=== PATIENT | female | born 1980 | race Caucasian/White ===

== ENCOUNTER 2016-11-28 19:18 | Emergency (ER) | payer OTHER ==
[~2016-11-28] VITALS: Ht 170.2 cm; Wt 100.0 kg
[~2016-11-28 19:18] MED LIST: CLON-364 PO; DOCU240C31 PO; ESCI10TA10 PO; FLUC200T PO; HYDR-3307 PO; HYDR4TAB48 PO; IBUP-1222 PO; SENN1TAB67 PO
[2016-11-28] MEDS ORDERED: HYDR-882 PO (19:32)
[2016-11-28] MEDS ORDERED: HYDROcodone/APAP 5/325 TABLET ONE (19:53)
[2016-11-28] MEDS ORDERED: KETOROLAC 30 MG/1 ML ONE (19:54)
[2016-11-28] MEDS ORDERED: METHOCARBAMOL 750 MG TABLET ONE (19:54)
[2016-11-28] MEDS ORDERED: HYDROcodone/APAP 5/325 TABLET PO ONE (20:00)
[2016-11-28] MEDS ORDERED: KETOROLAC 30 MG/1 ML IM ONE (20:00)
[2016-11-28] MEDS ORDERED: METHOCARBAMOL 750 MG TABLET PO ONE (20:00)
[2016-11-28 20:47] VITALS: BP 109/65
== END 2016-11-28 21:25 | disposition home or self-care (01) ==
LOC: ED 21:19
DX: S39.012A Strain of muscle, fascia and tendon of lower back, initial encounter (principal); G89.11 Acute pain due to trauma; M46.1 Sacroiliitis, not elsewhere classified; G89.29 Other chronic pain; W01.0XXA Fall on same level from slipping, tripping and stumbling without subsequent striking against object, initial encounter; Y93.89 Activity, other specified; Y92.89 Other specified places as the place of occurrence of the external cause; Y99.8 Other external cause status
CPT/HCPCS: 72072; 72110; 72220; 96372; 99284; J1885

== ENCOUNTER 2017-01-04 02:55 | Emergency (ER) | payer OTHER ==
[~2017-01-04] VITALS: Ht 170.2 cm; Wt 112.0 kg
[~2017-01-04 02:55] MED LIST changes: +HYDR-882 PO
[2017-01-04] MEDS ORDERED: SODIUM CHLORIDE FLUSH 10ML SYR IVF ONE (03:30)
[2017-01-04] MEDS ORDERED: SODIUM CHLORIDE 0.9% 1,000ML IVBOLUS ONE (03:30)
[2017-01-04] MEDS ORDERED: ONDANSETRON 2MG/ML, 2ML IVPush ONE (03:30)
[2017-01-04] MEDS ORDERED: ONDANSETRON 2MG/ML, 2ML ONE (03:36)
[2017-01-04] MEDS ORDERED: MORPHINE SULFATE 4 MG/ML, 1ML ONE (04:02)
[2017-01-04 04:05] LABS: HEMATOCRIT 44.3 % (34.6-47.8); HEMOGLOBIN 15.3 g/dL (11.7-16.4); WHITE BLOOD COUNT 14.9 x10^3/uL (3.4-10)
[2017-01-04 04:17] LABS: ASPARTATE AMINO TRANSFERASE 10 U/L (15-37); BLOOD UREA NITROGEN 9 mg/dL (7-18)
[2017-01-04] MEDS ORDERED: MORPHINE SULFATE 4 MG/ML, 1ML IVPush PRN (04:30)
[2017-01-04 05:32] VITALS: BP 107/47
== END 2017-01-04 06:33 | disposition home or self-care (01) ==
LOC: ED 05:38
DX: S16.1XXA Strain of muscle, fascia and tendon at neck level, initial encounter (principal); S06.0X0A Concussion without loss of consciousness, initial encounter; S09.90XA Unspecified injury of head, initial encounter; R55 Syncope and collapse; R11.2 Nausea with vomiting, unspecified; E78.5 Hyperlipidemia, unspecified; W19.XXXA Unspecified fall, initial encounter; Y93.89 Activity, other specified; Y92.89 Other specified places as the place of occurrence of the external cause; Y99.8 Other external cause status
CPT/HCPCS: 36415; 70450; 72072; 72125; 80053; 80307; 85025; 93005; 96361; 96374; 96375; 99285; J2405; J7030; G0479

== ENCOUNTER 2017-03-26 22:55 | Emergency (ER) | payer OTHER ==
[~2017-03-26] VITALS: Ht 170.2 cm; Wt 108.2 kg
[2017-03-26] MEDS ORDERED: MORPHINE SULFATE 4 MG/ML, 1ML ONE (23:24)
[2017-03-26] MEDS ORDERED: ONDANSETRON 2MG/ML, 2ML ONE (23:24)
[2017-03-26] MEDS ORDERED: SODIUM CHLORIDE FLUSH 10ML SYR IVF ONE (23:30)
[2017-03-26] MEDS ORDERED: MORPHINE SULFATE 4 MG/ML, 1ML IVPush PRN (23:30)
[2017-03-26] MEDS ORDERED: SODIUM CHLORIDE 0.9% 1,000ML IVBOLUS ONE (23:30)
[2017-03-26] MEDS ORDERED: ONDANSETRON 2MG/ML, 2ML IVPush ONE (23:30)
[2017-03-26 23:44] LABS: MICROSCOPIC INDICATED
[2017-03-26 23:45] LABS: ALANINE AMINOTRANSFERASE 31 U/L (12-78); ALBUMIN 3.3 g/dL (3.4-5.0); ANION GAP 5 mmol/L (5-15); BASOPHILS # (AUTO) 0.09 x10^3/uL (0-0.1); BASOPHILS % (AUTO) 1 % (0-1); CALCIUM 8.5 mg/dL (8.5-10.1); CHLORIDE 108 mmol/L (98-107); EOSINOPHILS # (AUTO) 0.36 x10^3/uL (0-0.4); EOSINOPHILS % (AUTO) 3 % (1-7); LYMPHOCYTES # (AUTO) 3.34 x10^3/uL (1-3.4); LYMPHOCYTES % (AUTO) 28 % (22-44); MD NO; MEAN CORPUSCULAR HEMOGLOBIN 30.2 pg (27.0-34.8); MEAN CORPUSCULAR HGB CONC 34.3 g/dL (32.4-35.8); MEAN CORPUSCULAR VOLUME 88.1 fL (80-100); MEAN PLATELET VOLUME 9.2 fL (7.4-10.4); MONOCYTES # (AUTO) 0.77 x10^3/uL (0.2-0.8); MONOCYTES % (AUTO) 7 % (2-9); NEUTROPHILS # (AUTO) 7.34 x10^3/uL (1.8-6.8); NEUTROPHILS % (AUTO) 62 % (42-75); PLATELET COUNT 282 x10^3/uL (130-400); RED BLOOD COUNT 4.89 x10^6/uL (3.82-5.3); RED CELL DISTRIBUTION WIDTH 13.2 % (9.6-15.2)
[2017-03-26 23:50] LABS: ALKALINE PHOSPHATASE 98 U/L (45-117); BILIRUBIN,TOTAL 0.2 mg/dL (0.2-1.0); CREATININE 0.83 mg/dL (0.55-1.02); TOTAL PROTEIN 6.8 g/dL (6.4-8.2)
[2017-03-27] LABS: CULTURE INDICATED? YES
[2017-03-27 02:15] VITALS: BP 138/86
== END 2017-03-27 02:17 | disposition home or self-care (01) ==
LOC: ED 23:28
DX: R10.11 Right upper quadrant pain (principal); R10.13 Epigastric pain; J15.9 Unspecified bacterial pneumonia; Z90.89 Acquired absence of other organs; Z90.710 Acquired absence of both cervix and uterus
CPT/HCPCS: 36415; 74022; 76700; 80053; 81001; 83690; 84703; 85025; 87086; 93005; 96374; 96375; 99285; J2405; J7030

== ENCOUNTER 2017-10-29 19:14 | Emergency (ER) | payer OTHER ==
[~2017-10-29] VITALS: Ht 170.2 cm; Wt 103.6 kg
[~2017-10-29 19:14] MED LIST changes: -CLON-364 PO; +CLON0.5T11 PO
[2017-10-29] MEDS ORDERED: SODIUM CHLORIDE FLUSH 10ML SYR IVF ONE (20:00)
[2017-10-29 20:18] LABS: ALANINE AMINOTRANSFERASE 24 U/L (12-78); ALBUMIN 3.8 g/dL (3.4-5.0); ANION GAP 5 mmol/L (5-15); CALCIUM 9.4 mg/dL (8.5-10.1); CHLORIDE 108 mmol/L (98-107); CREATININE 0.94 mg/dL (0.55-1.02)
[2017-10-29 20:20] LABS: BASOPHILS # (AUTO) 0.05 x10^3/uL (0-0.1); BASOPHILS % (AUTO) 1 % (0-1); EOSINOPHILS # (AUTO) 0.24 x10^3/uL (0-0.4); EOSINOPHILS % (AUTO) 2 % (1-7); LYMPHOCYTES # (AUTO) 2.88 x10^3/uL (1-3.4); LYMPHOCYTES % (AUTO) 27 % (22-44); MD NO; MEAN CORPUSCULAR HEMOGLOBIN 30.5 pg (27.0-34.8); MEAN CORPUSCULAR HGB CONC 34.2 g/dL (32.4-35.8); MEAN CORPUSCULAR VOLUME 89.3 fL (80-100); MEAN PLATELET VOLUME 8.6 fL (7.4-10.4); MONOCYTES % (AUTO) 6 % (2-9); NEUTROPHILS # (AUTO) 7.12 x10^3/uL (1.8-6.8); NEUTROPHILS % (AUTO) 65 % (42-75); PLATELET COUNT 333 x10^3/uL (130-400); RED BLOOD COUNT 5.23 x10^6/uL (3.82-5.3)
[2017-10-29 20:23] LABS: ALKALINE PHOSPHATASE 106 U/L (45-117); BILIRUBIN,TOTAL 0.4 mg/dL (0.2-1.0); TOTAL PROTEIN 7.6 g/dL (6.4-8.2); TROPONIN I < 0.015 ng/mL (0.000-0.045)
[2017-10-29] MEDS ORDERED: KETOROLAC 30 MG/1 ML IVPush ONE (21:30)
[2017-10-29] MEDS: PROMETHAZINE 25 MG/ML, 1ML IM ONE ×2 (21:30→22:18)
[2017-10-29] MEDS ORDERED: ONDANSETRON 2MG/ML, 2ML IVPush ONE (21:30)
[2017-10-29] MEDS ORDERED: PROMETHAZINE 25 MG/ML, 1ML ONE (21:50)
[2017-10-29] MEDS ORDERED: ONDANSETRON 2MG/ML, 2ML ONE (21:50)
[2017-10-29] MEDS ORDERED: KETOROLAC 30 MG/1 ML ONE (21:50)
[2017-10-29 22:13] LABS: CULTURE INDICATED? YES; MICROSCOPIC INDICATED
[2017-10-29 22:59] VITALS: BP 104/58
[2017-10-30] MEDS ORDERED: OMNIPAQUE 350 MG/ML, 100ML BOTTLE ONE (22:00)
== END 2017-10-29 23:01 | disposition home or self-care (01) ==
LOC: ED 21:58
DX: R10.32 Left lower quadrant pain (principal); R11.2 Nausea with vomiting, unspecified; G43.909 Migraine, unspecified, not intractable, without status migrainosus; E78.5 Hyperlipidemia, unspecified; F17.210 Nicotine dependence, cigarettes, uncomplicated
CPT/HCPCS: 36415; 74022; 74177; 80053; 81001; 84484; 84703; 85025; 87077; 87086; 87186; 93005; 96374; 96375; 99285; 99406; J1885; J2405; 96372; J2550; Q9967